=== PATIENT | male | born 2000 | race African-American/Black ===

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

== ENCOUNTER 2020-10-02 00:29 | Emergency (ER) | payer OTHER ==
[~2020-10-02] VITALS: Ht 190.5 cm; Wt 109.0 kg
[2020-10-02 02:12] LABS: BASOPHILS % 0.7 % (0.0-2.0); EOSINOPHILS % 0.8 % (0.0-5.0); HEMATOCRIT. 44.3 % (42.0-52.0); HEMOGLOBIN. 14.7 g/dL (14.0-18.0); LYMPHOCYTES % 26.2 % (20.0-50.0); MEAN CORPUSCULAR HEMOGLOBIN 28.9 pg (28.0-32.0); MEAN CORPUSCULAR VOLUME 86.9 fL (80.0-94.0); MEAN PLATELET VOLUME 7.8 fl (7.4-10.4); MONOCYTES % 7.9 % (2.0-8.0); NEUTROPHILS % 64.4 % (40.0-76.0); PLATELET 312 x1000/uL (130-400); RED CELL DISTRIBUTION WIDTH 13.7 % (11.6-14.6)
[2020-10-02 02:16] LABS: CHLORIDE 108 mEq/L (98-107)
[2020-10-02 02:20] LABS: ETHANOL BLOOD < 10 mg/dL
[2020-10-02 02:43] LABS: CLARITY URINE CLEAR (CLEAR); COLOR URINE DARK YELLOW (YELLOW); KETONES URINE 1+ (NEGATIVE); LEUKOCYTE ESTERASE URINE NEGATIVE (NEGATIVE); NITRITE URINE NEGATIVE (NEGATIVE); OCCULT BLOOD URINE NEGATIVE (NEGATIVE); PH URINE 5.5 (4.5-8.0); PROTEIN URINE 1+ (NEGATIVE); SPECIFIC GRAVITY URINE 1.038 (1.005-1.030)
[2020-10-02 02:53] LABS: *AMPHETAMINES SCREEN URINE NEGATIVE (NEGATIVE); *BARBITURATES SCREEN URINE NEGATIVE (NEGATIVE); *BENZODIAZEPINES SCREEN URINE NEGATIVE (NEGATIVE); *COCAINE SCREEN URINE NEGATIVE (NEGATIVE)
[2020-10-02 02:54] LABS: CANNABINOID URINE SCREEN PRESUMTIVE POSITIVE (NEGATIVE); METHADONE URINE SCREEN NEGATIVE (NEGATIVE); OPIATES URINE SCREEN NEGATIVE (NEGATIVE); PHENCYCLIDINE URINE SCREEN NEGATIVE (NEGATIVE)
[2020-10-02] MEDS ORDERED: ZIPRASIDONE MESYLATE 20MG/VIAL IM ONE (04:30)
[2020-10-02] MEDS ORDERED: LORAZEPAM 1MG TABLET PO ONE (07:30)
[2020-10-02] MEDS: SERTRALINE HCL 100MG TABLET PO SCH (21:11)
[2020-10-03] MEDS: SERTRALINE HCL 100MG TABLET PO SCH (09:51)
[2020-10-03] MEDS ORDERED: LORAZEPAM 1MG TABLET PO ONE (12:30)
[2020-10-03] MEDS ORDERED: AMLODIPINE 5MG TABLET PO NR (20:30)
[2020-10-04] MEDS: SERTRALINE HCL 100MG TABLET PO SCH (08:40)
[2020-10-04] MEDS ORDERED: AMLODIPINE 5MG TABLET PO SCH (09:00)
[2020-10-04 14:29] VITALS: BP 142/78
[2020-10-04] MEDS ORDERED: OLANZAPINE 5MG TABLET PO SCH (21:00)
== END 2020-10-04 14:55 ==
LOC: ER 00:29
DX: R45.851 Suicidal ideations (principal); F48.8 Other specified nonpsychotic mental disorders; Z20.822 Contact with and (suspected) exposure to COVID-19; Z78.1 Physical restraint status; F31.9 Bipolar disorder, unspecified; F12.90 Cannabis use, unspecified, uncomplicated; Z75.1 Person awaiting admission to adequate facility elsewhere
CPT/HCPCS: 36415; 80053; 80305; 80307; 80320; 80329; 81003; 84443; 85025; 87426; 96372; 99285; J3486; Z7610; G0480